=== PATIENT | male | born 1975 | race Caucasian/White ===

== ENCOUNTER 2017-09-22 07:55 | Emergency (ER) | payer OTHER ==
[~2017-09-22] VITALS: Ht 188 cm; Wt 107.0 kg
[2017-09-22] MEDS ORDERED: DICY20TA PO (13:27)
[2017-09-22] MEDS ORDERED: LOPERAMIDE2 M1 PO (13:27)
[2017-09-22] MEDS ORDERED: ZANTAC300 MG PO (13:27)
[2017-09-22] MEDS ORDERED: PROBIOTIC & AC1 EACH PO (13:27)
== END 2017-09-22 13:43 | disposition home or self-care (01) ==
LOC: ER 07:55
DX: K52.89 Other specified noninfective gastroenteritis and colitis (principal); E86.0 Dehydration